=== PATIENT | female | born 1995 | race African-American/Black ===

== ENCOUNTER 2019-10-07 10:33 | Emergency (ER) | payer OTHER ==
[~2019-10-07] VITALS: Ht 162.6 cm; Wt 92.5 kg
[2019-10-07 11:31] LABS: ABSOLUTE NEUTROPHILS 2.8 thou/uL (1.4-8.2); BASOPHILS 0.7 % (0.0-2.0); HEMATOCRIT 41.3 % (37.0-47.0); HEMOGLOBIN 13.7 gm/dL (12.0-15.0); LYMPHOCYTES 40.5 % (24.0-44.0); MCH 27.4 pg (26.0-34.0); MCHC 33.2 g/dL (28.0-37.0); MCV 82.6 fL (80.0-100.0); MONOCYTES 11.5 % (1.0-8.0); PLATELET COUNT 336 thou/uL (150-400); POLYS 45.3 % (36.0-66.0); RDW 14.2 % (10.5-14.5); WBC 6.1 thou/uL (4.0-11.0)
[2019-10-07 11:34] LABS: ANION GAP 6 mmol/L (7-16); BUN 9 mg/dL (7-18); CALCIUM 8.6 mg/dL (8.5-10.1); CHLORIDE 102 mmol/L (98-107); CO2 27 mmol/L (21-32); CREATININE 0.9 mg/dL (0.6-1.0); GLUCOSE 91 mg/dL (74-106); SODIUM 135 mmol/L (136-145)
[2019-10-07 11:43] LABS: ALBUMIN 3.6 g/dL (3.4-5.0); SGOT 14 U/L (15-37); SGPT 21 U/L (30-65); TOTAL BILIRUBIN 0.3 mg/dL (<0.1-1.0); TOTAL PROTEIN 7.4 g/dL (6.4-8.2); TROPONIN-I <0.06 ng/mL (<0.06)
[2019-10-07 12:54] VITALS: BP 107/63
--- NOTE | 2019-10-08 07:51 | EKG ---
[facility] [place] [address] ELECTROCARDIOGRAM REPORT Name: SAMMY BRANNON Room #: DEP [facility]#: [id number] Admission: 10/07/19 Attend Phys: Discharge: 10/07/19 Date of : [birth year] Report #: [id number] THIS REPORT FOR: cc: FAM - Family physician unknown FAM - Family physician unknown Anthony Rodriguez MD [facility] ~ THIS REPORT FOR: //name// [facility] ED Test Date: 2019-10-07 Test Time: 11:02:32 Pat Name: SAMMY BRANNON Department: Room: Gender: F [employer] Custodian: GERALDINE : 1995 Requested By: Christiano Mckeon Order Number: [id number] MD: Anthony Rodriguez Measurements Intervals [place] Rate: 56 P: -1 TN: 135 QRS: -11 QRSD: 115 T: 32 QT: 435 QTc: 420 Interpretive Statements Sinus rhythm Incomplete right bundle branch block ST elev, probable normal early repol pattern No previous ECG available for comparison Electronically Signed On 10-08-2019 7:50:00 CDT by Anthony Rodriguez [email or web address] <ELECTRONICALLY SIGNED> By: Anthony Rodriguez MD, FAC 10/08/19 0750 01 01 Anthony Rodriguez MD, [facility] /EPI
== END 2019-10-07 12:55 | disposition home or self-care (01) ==
LOC: ER 10:33
PROVIDERS: Emergency Medicine
DX: R07.89 Other chest pain (principal); Z20.828 Contact with and (suspected) exposure to other viral communicable diseases; R50.9 Fever, unspecified